=== PATIENT | male | born 1985 | race Caucasian/White ===

== ENCOUNTER 2019-10-24 05:32 | Emergency (ER) | payer OTHER ==
[~2019-10-24] VITALS: Ht 185.4 cm; Wt 93.0 kg
[2019-10-24 06:37] LABS: AMP/METHAMP POSITIVE (Negative); BARBITURATES Negative (Negative); BENZODIAZEPINES Negative (Negative); COCAINE Negative (Negative); METHADONE Negative (Negative); OPIATES Negative (Negative); PCP Negative (Negative)
[2019-10-24 07:17] LABS: ABSOLUTE NEUTROPHILS 8.2 thou/uL (1.4-8.2); BASOPHILS 0.4 % (0.0-2.0); EOSINOPHILS 0.3 % (0.0-3.0); HEMATOCRIT 43.7 % (42.0-52.0); HEMOGLOBIN 14.6 gm/dL (14.0-18.0); LYMPHOCYTES 19.8 % (24.0-44.0); MCH 30.3 pg (26.0-34.0); MCHC 33.5 g/dL (28.0-37.0); MCV 90.5 fL (80.0-100.0); PLATELET COUNT 343 thou/uL (150-400); POLYS 67.5 % (36.0-66.0); RBC 4.83 mil/uL (4.50-6.00); RDW 13.7 % (10.5-14.5); WBC 12.1 thou/uL (4.0-11.0)
[2019-10-24 07:19] LABS: ANION GAP 15 mmol/L (7-16); BUN 22 mg/dL (7-18); CALCIUM 9.7 mg/dL (8.5-10.1); CHLORIDE 97 mmol/L (98-107); CO2 23 mmol/L (21-32); CREATININE 1.2 mg/dL (0.7-1.3); GLUCOSE 88 mg/dL (74-106); POTASSIUM 3.5 mmol/L (3.5-5.1); SODIUM 135 mmol/L (136-145)
[2019-10-24 07:28] LABS: MAGNESIUM 1.8 mg/dL (1.8-2.4); TROPONIN-I <0.06 ng/mL (<0.06)
--- NOTE | 2019-10-24 08:05 | EKG ---
[facility] [place] [address] ELECTROCARDIOGRAM REPORT Name: JIM CORNELIUS Room #: REG [facility]#: [id number] Admission: 10/24/19 Attend Phys: Discharge: Date of : 83 Report #: [id number] THIS REPORT FOR: cc: NO FAMILY PHYSICIAN or PCP NO FAMILY PHYSICIAN or PCP Govind Durham MD [facility] ~ THIS REPORT FOR: //name// [facility] ED Test Date: 2019-10-24 Test Time: 06:53:35 Pat Name: JIM CORNELIUS Department: Room: Gender: M [employer] Judge: Therese : 1985 Requested By: Raulito Jack Order Number: [id number] MD: Govind Durham Measurements Intervals [place] Rate: 105 P: 62 CT: 120 QRS: 65 QRSD: 74 T: 60 QT: 344 QTc: 455 Interpretive Statements Sinus tachycardia Otherwise normal tracing Compared to ECG 12/11/2001 05:01:23 No significant change was found Electronically Signed On 10-24-2019 8:05:25 CDT by Govind Durham [email or web address] <ELECTRONICALLY SIGNED> By: Govind Durham MD, [facility] 10/24/19 [id number] Govind Durham MD, [facility] /EPI
[2019-10-24 10:26] VITALS: BP 110/62
== END 2019-10-24 09:00 | disposition home or self-care (01) ==
LOC: ER 05:32
PROVIDERS: Emergency Medicine
DX: T39.1X1A Poisoning by 4-Aminophenol derivatives, accidental (unintentional), initial encounter (principal); R44.1 Visual hallucinations; R07.89 Other chest pain; R51 Headache; R41.82 Altered mental status, unspecified; F15.90 Other stimulant use, unspecified, uncomplicated; F17.210 Nicotine dependence, cigarettes, uncomplicated; Y92.89 Other specified places as the place of occurrence of the external cause